=== PATIENT | female | born 1970 | race Caucasian/White ===

== ENCOUNTER 2024-11-01 03:54 | Emergency (ER) | payer BC, SELFPAY ==
[2024-11-01 04:07] VITALS: BP 167/102
[2024-11-01 04:20] VITALS: BP 152/84
[2024-11-01 04:21] VITALS: BMI 47.9
[2024-11-01 05:00] VITALS: BP 136/74
[2024-11-01 05:40] LABS: % Basophils 0.6 % (0-2); % Eosinophils 1.4 % (0-6); % Immature Granulocytes 0.3 % (0-0.5); % Lymphocytes 12.5 % (20.5-51.1); % Monocytes 5.5 % (1.7-9.3); % Neutrophils 79.7 % (42.2-75.2); Absolute Basophils 0.1 10^3/uL (0-0.2); Absolute Eosinophils 0.2 10^3/uL (0-0.7); Absolute Lymphocytes 1.5 10^3/uL (1.2-3.4); Absolute Monocytes 0.6 10^3/uL (0.1-0.6); Absolute Neutrophils 9.3 10^3/uL (1.4-6.5); Hematocrit 38.3 % (37.0-47.0); Hemoglobin 13.1 g/dL (12.0-16.0); Mean Corp Hgb Conc. 34.2 g/dL (33.0-37.0); Mean Corpuscular Volume 84.7 fL (81.0-99.0); Mean Platelet Volume 9.7 fL (7.4-10.4); Nucleated Red Blood Cells % 0 %; Platelet Count 240 10^3/uL (130-400); Red Blood Cell Count 4.52 10^6/uL (4.20-5.40); Red Cell Dist. Width 12.8 % (11.5-14.5); White Blood Cell Count 11.6 10^3/uL (4.8-10.8)
[2024-11-01 06:05] LABS: ALT (SGPT) 23 U/L (0-35); AST (SGOT) 22 U/L (14-36); Albumin 4.6 g/dl (3.5-5.0); Alkaline Phosphatase 90 U/L (38-126); Blood Urea Nitrogen 16 mg/dl (7-17); Calcium 9.3 mg/dl (8.4-10.2); Carbon Dioxide 23 mmol/L (22-30); Chloride 107 mmol/L (98-107); Estimated Creatinine Clearance 71 ml/min; Glucose 158 mg/dl (70-99); Potassium 4.8 mmol/L (3.5-5.1); Sodium 140 mmol/L (135-145); Total Bilirubin 0.4 mg/dl (0.2-1.3); Total Protein 7.6 g/dl (6.3-8.2); eGFR 53.79
--- NOTE | 2024-11-01 06:14 | ED.GENMED ---
History of Present Illness
General
Chief Complaint: Abdominal Symptoms
Source: patient
Time Seen by Provider: 11/01/24 06:03
History of Present Illness
History of Present Illness:
54-year-old female with past medical history of hypertension and hypothyroidism presenting to the emergency department for evaluation after she developed some left-sided lower abdomen pain around midnight last night described just be a
'uncomfortable pain' constant and nonradiating accompanied with dark urine and 1 episode of vomiting, noting persistent nausea. Denies any history of similar. She states she did not eat anything out of the ordinary yesterday but did indulge in
additional sweets yesterday afternoon than what she is typically eating. No known sick contacts. Denies any fevers, chills, rigors, diarrhea, urinary frequency/urgency/dysuria or hematuria. No recent travel, no recent antibiotics. Surgical
history noncontributory. Social history also noncontributory.
Past History
Past History
ED Past Medical History: HTN and Hypothyroidism
ED Past Surgical History: None
Social History
Tobacco: Non-smoker
Alcohol: Occasional
Drug: None
Personal:
Living: with family
Review of Systems
Review of Systems
All Other Systems: ROS reviewed and negative except as documented in HPI and ROS
Phy Exam
Physical Exam
Physical Exam:
GENERAL: Alert , appears uncomfortable, overweight
EYE: clear conjunctiva b/l
HEAD: NCAT
ENT: o/p clr, mmm.
CARDIAC: Regular rate and rhythm .
LUNGS: Clear breath sounds bilaterally, no acute respiratory distress, no wheezes/rales/rhonchi
ABDOMEN: Soft, left lower quadrant tenderness which extends into the left flank, no r/g
NEUROLOGICAL: Alert and oriented
SKIN: Warm and dry, skin intact.
MUSCULOSKELETAL: No edema, well perfused.
PSYCH: Normal and appropriate interaction.
Scores
Heart Failure Risk
Heart Failure Risk Score: Not Applicable
Heart Score for Chest Pain Patients
STEMI patient?: Not applicable
Withdrawal Assessment of Alcohol
Withdrawal Assessment Completed?: Not applicable
Course
Orders/Labs/Results
Orders:
Orders
11/01/24 05:30
Complete Blood Count/With Diff Urgent
Comprehensive Metabolic Panel Urgent
Lipase Urgent
11/01/24 06:13
CT Abd/pelvis W Iv Cont Urgent
Comment:
Reason For Exam: LLQ/left flank pain
0.9% Sodium Chloride 1000 ml [Nss] 1,000 ml IV BOLUS
Ketorolac [Toradol] 30 mg IV NOW STA
Ondansetron Injectable [Zofran] 4 mg IV NOW STA
11/01/24 08:38
Urinalysis Reflex To Culture Urgent
Date Specimen was Collected: 11/01/24
Time Specimen was Collected: 07:36
Urine Microscopic Reflex Cult Urgent
Abnormal Lab Results
11/01/24 11/01/24
05:30 08:38
WBC 11.6 H 10^3/uL
(4.8-10.8)
Absolute Neuts (auto) 9.3 H 10^3/uL
(1.4-6.5)
Neutrophils % 79.7 H %
(42.2-75.2)
Lymphocytes % 12.5 L %
(20.5-51.1)
Creatinine 1.2 H mg/dL
(0.6-1.0)
Glucose 158 H mg/dl
(70-99)
Ur Occult Blood Reflex 4+ A
(Negative)
Urine RBC 16-20 A /HPF
(0-2)
Urine Bacteria (Reflex) Few A
(Negative)
Urine Albumin (Reflex) 2+ A
(Neg - Trace)
11/01/24 05:30
11/01/24 05:30
Vital Signs
Initial and Last Documented VS:
Initial Vital Signs
Temp Pulse Resp BP Pulse Ox
98.4 F 93 18 167/102 95
11/01/24 04:07 11/01/24 04:07 11/01/24 04:07 11/01/24 04:07 11/01/24 04:07
Last Documented Vital Signs
Temp Pulse Resp BP Pulse Ox
98.4 F 93 18 136/74 96
11/01/24 04:07 11/01/24 04:07 11/01/24 04:07 11/01/24 05:00 11/01/24 06:15
MDM/Problems Addressed
Differential Diagnosis Includes:
- Diverticulitis
- Renal/Ureteral Colic
- Cystitis
- Pyelonephritis
- Pancreatitis
- Appendicitis
- Gastroenteritis
- Foodborne Illness
MDM/Problems Addressed:
54-year-old female presenting to the ER for evaluation of left-sided abdominal pain which began a few hours ago, did not take any medications for her symptoms prior to arrival. Appears very uncomfortable here with reproducible tenderness within the
left lower quadrant and left flank. Labs were initiated on arrival which do show a mild leukocytosis and mild KISHORE. Will check CT of the abdomen and pelvis, treatment with Toradol, Zofran and fluids. Will check urinalysis for any signs of
infection or hematuria.
*Radiology
Radiology exam reviewed: radiology read reviewed
*Pulse Oximetry
SaO2: 96
Oxygen Mode of Delivery: Room air
Patient hypoxic: no
*Critical Care Note
Total Time (30-74mins, 75-104mins- exclusive of procedures): Not Applicable
Patient Management
Escalation/DeEscalation of care consider admission/obs:
5 mm left UPJ stone with perinephric stranding noted. Urine without signs of infection. Other incidental findings discussed with the patient and she was provided with a printout of her CT report. Pain is significantly improved following
medications, patient tolerating p.o. Will discharge home with Flomax, Percocet and Zofran. Can also take Motrin/for pain. Information for urology provided. Patient aware of return precautions, stable for discharge home.
ED Attending Note
-
Portions of this chart may have been created with voice recognition software.� Occasional wrong word or��sound alike� substitutions may have occurred due to the inherent limitations of voice recognition software.
Discharge Plan
Departure
Patient Disposition: Home (Routine Discharge)
Date of Disposition: 11/01/24
Time of Disposition: 09:18
Patient with high blood pressure during this ER visit?: Yes
Discharge Problem:
Ureterolithiasis, Ureteral colic
Instructions: Kidney stones in adults - ED discharge instructions
Prescriptions:
New
oxycodone-acetaminophen [Percocet] 5-325 mg tablet
1 tab PO Q6HPRN PRN (Reason: pain) Qty: 6 0RF
tamsulosin [Flomax] 0.4 mg capsule
0.4 mg PO DAILY Qty: 10 0RF
ondansetron 4 mg tablet,disintegrating
4 mg PO TIDPRN PRN (Reason: nausea/vomiting) Qty: 10 0RF
Referrals:
Jeremy Andre MD [Active, Urology]
Kevin Ansari CRNP [Family Provider]
Interventions
Interventions:
*Risk Screen - Suicide Last Done: 11/01/24 04:07
*General Assessment Last Done: 11/01/24 04:07
*Neglect/Abuse Screening Last Done: 11/01/24 04:07
*ED- Fall Risk Assessment Last Done: 11/01/24 04:07
*ED COVID-19 Vaccine History Last Done: 11/01/24 04:07
*Nursing Disposition Last Done: 11/01/24 09:29
LQ-Miscri-Yxkjuloxkv Assessment Last Done: 11/01/24 04:21
Discharge Date and Time
Discharge Date/Time: 11/01/24 09:34
Print Language: SAMI
[2024-11-01] MEDS: NSS 1000 IV (06:20)
[2024-11-01] MEDS: TORADOL 30 MG IV (06:20)
[2024-11-01] MEDS: ZOFRAN 4 MG IV (06:21)
[2024-11-01 06:53] LABS: Lipase 55 U/L (23-300)
[2024-11-01 08:51] LABS: Urine Albumin 2+ (Neg - Trace); Urine Bilirubin Negative (Negative); Urine Character Clear (Clear); Urine Color Yellow; Urine Glucose Negative (Negative); Urine Ketone Negative (Negative); Urine Leukocyte Negative (Negative); Urine Nitrite Negative (Negative); Urine Occult Blood 4+ (Negative); Urine Specific Gravity 1.005 (<1.030); Urine Urobilinogen Negative (Neg - 1+)
[2024-11-01 09:09] LABS: Urine Urothelial Cell 0-2 /LPF (FEW)
[2024-11-01 09:10] LABS: Urine Bacteria Few (Negative); Urine Red Blood Cell 16-20 /HPF (0-2); Urine White Cell 0-2 /HPF (0-5)
== END 2024-11-01 09:34 | disposition home or self-care (01) ==
LOC: EMR 03:54
PROVIDERS: Emergency Medicine; Physician Assistant Medical; EMERGENCY PHYSICIAN Emergency Medicine
DX: N20.2 Calculus of kidney with calculus of ureter (principal); E03.9 Hypothyroidism, unspecified; I10 Essential (primary) hypertension; N17.9 Acute kidney failure, unspecified
CPT/HCPCS: 99284; 96374; 96375; 96361; 74177; 80053; 81003; 81015; 83690; 85025; Q9967

== ENCOUNTER → 2024-11-24 09:59 | Outpatient (REF) | payer BC, SELFPAY | LOC: HWRAD 09:59 | PROVIDERS: ATTENDING PHYSICIAN Specialist | DX: N20.1 Calculus of ureter (principal); N13.1 Hydronephrosis with ureteral stricture, not elsewhere classified | CPT/HCPCS: 76775 ==

== ENCOUNTER 2025-01-12 12:10 | Emergency (ER) | payer BC, SELFPAY ==
[2025-01-12 12:14] VITALS: BP 179/100
--- NOTE | 2025-01-12 12:28 | ED.GENMED ---
History of Present Illness
General
Chief Complaint: Rectal Bleeding
Time Seen by Provider: 01/12/25 12:27
History of Present Illness
History of Present Illness:
FOCUSED PAST MEDICAL HISTORY
- The patient has a history of high blood pressure and hypothyroidism
REVIEW OF OLD RECORDS
- The patient was seen here with ureteral colic in 2024
Note:
CHIEF COMPLAINT(S)
Abdominal cramping, diarrhea, and rectal bleeding.
HISTORY OF PRESENT ILLNESS
The patient is a 54-year-old female with a history of hypertension and hypothyroidism who presented with abdominal cramping followed by diarrhea that began the day prior to consultation. The patient reported noticing blood in her stool around 2:30
to 3:00 AM, describing it as 'red blood.' Despite experiencing cramping, she did not report significant pain and denied having fever or chills. This is her first episode of rectal bleeding. The patient has no prior history of inflammatory bowel
diseases such as Crohns disease or ulcerative colitis. She had communicated these symptoms to her primary care physician, who advised attending the emergency room for further evaluation. She denies taking any blood-thinning or antiplatelet
medications. The patient is also currently on doxycycline, recently started for a mole, and reported no gastrointestinal side effects related to this medication.
PAST MEDICAL AND SURGICAL HISTORY
The patient has a history of hypertension and hypothyroidism.
SOCIAL HISTORY
The patient denies taking any blood-thinning or antiplatelet medications, which would typically be included in her current medication list if applicable.
REVIEW OF SYSTEMS
- Gastrointestinal: Abdominal cramping, diarrhea, rectal bleeding.
- Constitutional: Denies fever or chills.
- Cardiovascular: Subtle murmur noted upon evaluation, previously known to the patient.
PHYSICAL EXAM
General: Alert, no acute distress.
Skin: Warm, dry.
Head: Normocephalic, atraumatic.
Neck: Supple, trachea midline.
Eye Ears, nose, mouth and throat: Oral mucosa moist.
Cardiovascular: Normal peripheral perfusion, no edema. Subtle heart murmur present.
Respiratory: Respirations non-labored.
Gastrointestinal: Abdomen nondistended, no tenderness on palpation.
Back: Normal range of motion, normal alignment.
Musculoskeletal: Normal range of motion, normal strength.
Neurological: Alert and oriented to person, place, time, and situation, no focal neurological deficit observed.
Psychiatric: Cooperative, appropriate mood and affect.
Rectal Examination: No external hemorrhoids observed. Rectum appeared empty with no gross blood present.
PROBLEM LIST
Acute problems:
- Rectal bleeding
- Abdominal cramping and diarrhea
Chronic problems:
- Hypertension
- Hypothyroidism
PLAN
- Blood work to be conducted including hemoglobin levels to assess for potential anemia.
- Further evaluation and monitoring of the rectal bleeding.
- Consideration of stool tests if symptoms persist.
- Recommendation for colonoscopy, as previously prescribed.
DIFFERENTIAL DIAGNOSIS
The Differential Diagnosis includes, in no particular order and is not limited to:
1. Lower gastrointestinal bleed
2. Hemorrhoids
3. Diverticular disease
4. Colorectal cancer
5. Infectious colitis
6. Anal fissure
7. Inflammatory bowel disease
8. Ischemic colitis
9. Intestinal polyps
10. Drug-induced gastrointestinal disturbance
RADIOLOGY
- No clear indication for imaging at this time given normal CBC and absence of tenderness on exam
LABS
- White count 7.1, hemoglobin 12.9
UPDATE
-SUMMARY OF ENCOUNTER
The patient, a 54-year-old female with a history of hypertension and hypothyroidism, presented to the emergency department with complaints of abdominal cramping, diarrhea, and rectal bleeding. Blood work was performed and returned normal, showing no
signs of significant blood loss or anemia. A physical examination revealed no external hemorrhoids and an empty rectum with no gross blood noticed, correlating with the absence of serious physical distress or acute symptoms. Despite the episode of
needing an abrupt bowel movement, the patient remained comfortable without visible distress. No acute life-threatening condition was evident, and the comprehensive evaluations provided reassurance.
DISPOSITION
Discharge.
ASSESSMENT
The assessment is focused on potential causes of lower gastrointestinal bleed and rectal bleeding, considering differential diagnoses such as hemorrhoids, diverticular disease, colorectal cancer, infectious colitis, anal fissure, inflammatory bowel
disease, ischemic colitis, intestinal polyps, and drug-induced gastrointestinal disturbance.
PLAN
The plan includes recommending further evaluation and monitoring for rectal bleeding, considering stool tests if symptoms persist, and scheduling a colonoscopy as previously planned.
INDEPENDENT REVIEW OF LABS AND INTERPRETATION OF TESTS
My independent review of the laboratory work indicates that the results were normal, with no evidence of significant blood loss or anemia.
PATIENT EDUCATION AND COUNSELING
The patient was informed about the findings, explaining that no acute issues were detected in the lab results or examination. It was recommended that the patient remains vigilant for further symptoms and follows up on any further episodes of rectal
bleeding. A colonoscopy was suggested for a comprehensive evaluation.
FOLLOW-UP INSTRUCTIONS
The patient was advised to follow up with her primary care physician and schedule the recommended colonoscopy to investigate the cause of the rectal bleeding further.
MEDICATION RECONCILIATION
There was no indication that any new medication was prescribed or administered during the emergency visit.
MEDICAL DECISION MAKING
-Complexity of Data Reviewed: Chronic conditions affecting care include hypertension and hypothyroidism. The differential diagnosis includes:
1. Lower gastrointestinal bleed
2. Hemorrhoids
3. Diverticular disease
4. Colorectal cancer
5. Infectious colitis
6. Anal fissure
7. Inflammatory bowel disease
8. Ischemic colitis
9. Intestinal polyps
10. Drug-induced gastrointestinal disturbance
-Data:
Category 1
External records reviewed: The blood work performed was normal with no indication of significant blood loss or anemia.
-Risk: Consideration of Admission/Observation: Escalation of care including admission/observation was considered given the complexity and risk of the patients presenting complaint, exam findings, and underlying comorbidities. However, ultimately, it
was determined the patient is safe for outpatient management with close follow-up. Reasoning includes reassurance from lab results, absence of acute threatening processes, symptom management, stability upon reevaluation, and patient agreement for
discharge.
DIAGNOSIS
Rectal bleeding (ICD-10: K62.5), Acute diarrhea (ICD-10: R19.7).
Past History
Past History
ED Past Medical History: HTN and Hypothyroidism
ED Past Surgical History: None
Social History
Tobacco: Non-smoker
Alcohol: Occasional
Drug: None
Personal:
Living: with family
Phy Exam
Physical Exam
Physical Exam:
See HPI
Course
Orders/Labs/Results
Orders:
Orders
01/12/25 13:19
Complete Blood Count/With Diff Urgent
Comprehensive Metabolic Panel Urgent
Abnormal Lab Results
01/12/25
13:19
BUN 18 H mg/dl
(7-17)
Glucose 100 H mg/dl
(70-99)
01/12/25 13:19
01/12/25 13:19
Vital Signs
Initial and Last Documented VS:
Initial Vital Signs
Temp Pulse Resp Pulse Ox
36.8 C 81 18 95
01/12/25 12:13 01/12/25 12:13 01/12/25 12:13 01/12/25 12:13
Last Documented Vital Signs
Temp Pulse Resp BP Pulse Ox
36.8 C 81 18 179/100 95
01/12/25 12:13 01/12/25 12:13 01/12/25 12:13 01/12/25 12:14 01/12/25 12:28
*Pulse Oximetry
SaO2: 95
Patient hypoxic: no
*Critical Care Note
Total Time (30-74mins, 75-104mins- exclusive of procedures): Not Applicable
ED Attending Note
-
Portions of this chart may have been created with voice recognition software.� Occasional wrong word or��sound alike� substitutions may have occurred due to the inherent limitations of voice recognition software.
Discharge Plan
Departure
Patient Disposition: Home (Routine Discharge)
Date of Disposition: 01/12/25
Time of Disposition: 14:01
Patient with high blood pressure during this ER visit?: Yes
Discharge Problem:
Acute GI bleeding
Instructions: Bloody Stools, Adult (DC), BLOOD PRESSURE
Prescriptions:
No Action
levothyroxine [Synthroid] 75 mcg Tablet
75 mcg PO DAILY
hydrochlorothiazide 25 mg Tablet
25 mg PO DAILY@1200
lisinopril 40 mg Tablet
40 mg PO QPM
doxycycline hyclate 100 mg Tablet
100 mg PO DAILY
Rx Instructions:
for 10 days starting 01/07/25
Referrals:
Emre Flores MD [Active, Gastroenterology]
Kevin Ansari CRNP [Family Provider]
Activity Restrictions/Additional Instructions:
Your white blood cell count is normal at 7.1, hemoglobin is normal at 12.9, chemistries are normal. Return here if worse or other concerns. Follow with your primary care doctor. The office will give you the contact information for local GI doctor.
Interventions
Interventions:
*Risk Screen - Suicide Last Done: 01/12/25 12:13
*General Assessment Last Done: 01/12/25 12:58
*Neglect/Abuse Screening Last Done: 01/12/25 13:37
*ED- Fall Risk Assessment Last Done: 01/12/25 12:58
*ED COVID-19 Vaccine History Last Done: 01/12/25 12:58
TS-Brxari-Lhzwroqrkf Assessment Last Done: 01/12/25 12:58
ED- Cardiac Assessment Last Done: 01/12/25 12:58
ED- Pulmonary Assessment Last Done: 01/12/25 12:58
Discharge Date and Time
Print Language: BURMESE
[2025-01-12 12:58] VITALS: BMI 43.9
[2025-01-12 13:39] LABS: Hematocrit 37.3 % (37.0-47.0); Hemoglobin 12.9 g/dL (12.0-16.0); Mean Corp Hgb Conc. 34.6 g/dL (33.0-37.0); Mean Corpuscular Volume 82.9 fL (81.0-99.0); Nucleated Red Blood Cells % 0 %; Platelet Count 254 10^3/uL (130-400); Red Cell Dist. Width 13.1 % (11.5-14.5)
[2025-01-12 13:57] LABS: ALT (SGPT) 16 U/L (0-35); AST (SGOT) 19 U/L (14-36); Albumin 4.2 g/dl (3.5-5.0); Alkaline Phosphatase 83 U/L (38-126); Blood Urea Nitrogen 18 mg/dl (7-17); Calcium 9.0 mg/dl (8.4-10.2); Carbon Dioxide 25 mmol/L (22-30); Chloride 107 mmol/L (98-107); Estimated Creatinine Clearance 102 ml/min; Glucose 100 mg/dl (70-99); Potassium 4.1 mmol/L (3.5-5.1); Sodium 138 mmol/L (135-145); Total Protein 7.3 g/dl (6.3-8.2); eGFR > 60.00
[2025-01-12 15:19] VITALS: BP 154/109
== END 2025-01-12 15:35 | disposition home or self-care (01) ==
LOC: EMR 12:10
PROVIDERS: EMERGENCY PHYSICIAN Emergency Medicine
DX: K92.1 Melena (principal); I10 Essential (primary) hypertension; E03.9 Hypothyroidism, unspecified
CPT/HCPCS: 99283; 80053; 85025; 87045; 87046; 87324; 87427; 87449

== ENCOUNTER 2025-01-31 06:24 | Day surgery (SDC) | payer BC, SELFPAY | END 2025-01-31 14:26 | disposition home or self-care (01) | LOC: GI 06:24 | PROVIDERS: ATTENDING PHYSICIAN Internal Medicine | DX: K92.1 Melena (principal); K64.8 Other hemorrhoids; D12.2 Benign neoplasm of ascending colon; D12.3 Benign neoplasm of transverse colon; K63.5 Polyp of colon | CPT/HCPCS: 45385; 45380; 88305 ==

== ENCOUNTER → 2025-03-23 10:03 | Outpatient (REF) | payer BC, SELFPAY | LOC: HWRAD 10:03 | PROVIDERS: ATTENDING PHYSICIAN Specialist | DX: R31.0 Gross hematuria (principal); N20.0 Calculus of kidney | CPT/HCPCS: 74176 ==